=== PATIENT | male | born 1935 | race Caucasian/White ===

== ENCOUNTER → 2017-02-17 | Outpatient (CLI) | payer MEDICARE ==
[~2017-02-17] MED LIST: ADULT LOW DOSE81 MG PO; ASA CHILDREN'S81 MG PO; CARDIZEM CD DP120 MG PO; CARDIZEM CD360 MG PO; DELTASONE DPS10 MG PO; DUONEB DPS3 ML; DUONEB DPS3 ML IH; DUONEB DPS3 ML PO; FLOMAX DPS0.4 MG PO; FLONASE 0.05% D16 GM NS; GLUCOPHAGE1000 MG PO; GLUCOTROL DPS10 MG PO; GLUTOSE 1537.5 GM PO; IMDUR DPS60 MG PO; LASIX DPS20 MG PO; LASIX DPS40 MG PO; LEVAQUIN DPS500 MG PO; LOPRESSOR DPS100 MG PO; MAALOX DPS30 ML PO; OMEGA-3 DPS1000 MG PO; PRAVACHOL80 MG PO; PROAIR RESPICL90 MCG IH; PROVENTIL HFA6.7 GM IH; ROBITUSSIN DM D30 ML PO; SURFAK DPS240 MG PO; THERA1 EACH PO; TOPROL XL100 MG PO; TYLENOL DPS325 MG PO; VANTIN DPS200 MG PO; VITAMIN C1000 MG PO; VITAMIN D1000 UNIT PO; VITAMIN D31000 UNIT PO; ZESTRIL DPS40 MG PO
== END | disposition home or self-care (01) ==
LOC: RAD.S 12:06 → PTH.S 12:30
DX: C67.9 Malignant neoplasm of bladder, unspecified (principal); D59.1 Other autoimmune hemolytic anemias; I10 Essential (primary) hypertension; I25.10 Atherosclerotic heart disease of native coronary artery without angina pectoris; I70.1 Atherosclerosis of renal artery